=== PATIENT | male | born 1955 | race Caucasian/White ===

== ENCOUNTER 2016-11-27 18:48 | Emergency (ER) | payer MEDICARE, OTHER ==
[~2016-11-27] VITALS: Ht 172.7 cm; Wt 63.5 kg
[2016-11-27 18:51] VITALS: BP 140/49
== END 2016-11-27 19:30 | disposition home or self-care (01) ==
LOC: ER 18:49
DX: T16.2XXA Foreign body in left ear, initial encounter (principal); H60.8X2 Other otitis externa, left ear; X58.XXXA Exposure to other specified factors, initial encounter; Y92.89 Other specified places as the place of occurrence of the external cause; Y93.89 Activity, other specified; Y99.8 Other external cause status
CPT/HCPCS: 99283; A4606; Z7610

== ENCOUNTER 2017-03-21 13:09 | Inpatient (IN) | payer MEDICARE, OTHER ==
[~2017-03-21] VITALS: Ht 172.7 cm; Wt 64.9 kg
--- NOTE | 2017-03-21 13:15 | NUR ---
pt bib housemates to er bed 09. anxious, stating he had a lot of energy drink today. per report, pt also having nausea and vomiting last night. gowned and placed on monitor. awaiting md jessica.
[2017-03-21 13:36] LABS: BASOPHILS % (AUTO) 0.1 % (0.0-2.0); EOSINOPHILS # (AUTO) 0.1 /CMM (0.0-0.7); EOSINOPHILS % (AUTO) 0.5 % (0.0-6.0); HEMATOCRIT 36 % (39-51); HEMOGLOBIN 12.6 g/dL (13.5-17.5); LYMPHOCYTES # (AUTO) 0.8 /CMM (0.8-4.8); LYMPHOCYTES % (AUTO) 5.6 % (20.0-44.0); MEAN CORPUSCULAR HEMOGLOBIN 34 PG (26.0-33.0); MEAN CORPUSCULAR HGB CONC 35 g/dl (31.0-36.0); MEAN CORPUSCULAR VOLUME 98 fL (80-96); MONOCYTES # (AUTO) 1.1 /CMM (0.1-1.30); MONOCYTES % (AUTO) 7.9 % (2.0-12.0); NEUTROPHILS % (AUTO) 85.9 % (43.0-81.0); PLATELET COUNT (AUTO) 385 /CMM (150-450); RDW COEFFICIENT OF VARIATION 12.4 (11.5-15.0); RED BLOOD CELL COUNT(AUTO) 3.73 MIL/uL (4.5-6.0)
[2017-03-21 13:44] LABS: CALCIUM, SERUM 8.9 mg/dL (8.5-10.1); CARBON DIOXIDE 23 mmol/L (21-32); CHLORIDE 88 mmol/L (98-107); GLUCOSE 109 mg/dL (74-106); SODIUM SERUM 123 mmol/L (136-145); UREA NITROGEN, BLOOD 7 mg/dL (7-18)
[2017-03-21 13:49] LABS: ALANINE AMINOTRANSFERASE 30 U/L (12-78); ALBUMIN 4.2 g/dL (3.4-5.0); ALCOHOL, BLOOD < 3 mg/dL (0-0); ALKALINE PHOSPHATASE 76 U/L (46-116); ASPARTATE AMINOTRANSFERASE 41 U/L (15-37); BILIRUBIN,DIRECT 0.2 mg/dL (0.0-0.2); BILIRUBIN,TOTAL 1.3 mg/dL (0.2-1.0); TOTAL PROTEIN, SERUM 6.9 g/dL (6.4-8.2)
[2017-03-21 13:50] LABS: ACETAMINOPHEN < 10 ug/ml (10-30); SALICYLATE < 2.8 mg/dL (2.8-20.0)
[2017-03-21] MEDS ORDERED: LORAZEPAM 1 MG TABLET ONE ×2 (14:00→15:12)
[2017-03-21] MEDS ORDERED: LORAZEPAM 1 MG TABLET PO ONE ×2 (14:00→15:00)
[2017-03-21] MEDS ORDERED: OLANZAPINE 5 MG TABLET PO ONE (14:00)
[2017-03-21] MEDS ORDERED: OLANZAPINE 5 MG TABLET ONE (14:01)
--- NOTE | 2017-03-21 14:21 | NUR ---
URINE OBTAINED VIA STRAIGHT CATH AND SENT TO LAB PER DR. FRANKS.
--- NOTE | 2017-03-21 14:21 | NUR ---
CALLED [facility], LEFT VOICEMAIL.
[2017-03-21] MEDS ORDERED: LITH300T PO (14:24)
[2017-03-21] MEDS ORDERED: ZOLP10TA6 PO (14:24)
[2017-03-21] MEDS ORDERED: OXYB15TA PO (14:24)
[2017-03-21] MEDS ORDERED: AMIT50TA3 PO (14:24)
[2017-03-21] MEDS ORDERED: BUSP15TA3 PO (14:24)
[2017-03-21] MEDS ORDERED: SERT100T PO (14:24)
[2017-03-21] MEDS ORDERED: CLON1TAB4 PO (14:24)
[2017-03-21] MEDS ORDERED: QUET25TA PO (14:24)
[2017-03-21] MEDS ORDERED: LEVO100T9 PO (14:24)
[2017-03-21 14:43] LABS: APPEARANCE,URINE Clear (CLEAR); BILIRUBIN,URINE Negative (NEGATIVE); BLOOD, URINE Small Ery/uL (NEGATIVE); COLOR,URINE Light yellow (YELLOW); KETONES,URINE Negative (NEGATIVE); LEUKOCYTE ESTERASE ,URINE Negative (NEGATIVE); NITRITE, URINE Negative (NEGATIVE); PH,URINE 7.5 (5.0-8.0); PROTEIN,URINE Negative (NEGATIVE); UGLUCOSE Negative (NEGATIVE); UROBILINOGEN,URINE 0.2 EU/dL (0.2)
--- NOTE | 2017-03-21 14:46 | NUR ---
PATIENT WILL BE ADMITTED INTO [facility] 220-1.
[2017-03-21 14:48] LABS: BACTERIA,URINE None seen /HPF (None Seen); SQUAMOUS EPITHELIAL CELL,UR Few /HPF (None Seen); WBC,URINE 0-3 /HPF (0-3)
--- NOTE | 2017-03-21 16:59 | NUR ---
REPORT GIVEN TO ALEXANDRIA MONTANA FOR CONTINUITY OF CARE
--- NOTE | 2017-03-21 17:10 | NUR ---
PATIENT TAKEN TO GPS VIA STRETCHE WITH EMT.
[2017-03-21 17:15] VITALS: BP 140/88
--- NOTE | 2017-03-21 17:16 | NUR ---
ADMISSION NOTES PATIENT ADMITTED FROM ER , 61 Y/OLD MALE ON 5150 HOLD ON DX OF GD. ACCORDING ON HOLD PATIENT A/O X3, DISORGANIZED THOUGHTS, NOT BATHING, HALLUCINATING, AND CONFUSED , AND UNABLE TO TAKE CARE OF HIM SELF. V/S TAKEN BP140/88, P-84, R-20, O2 -99 ROOM AIR, T-98 . ON FACE TO FACE ASSESSMENT PATIENT ANXIOUS, UNKEMPT,, MOOD FLAT, DEPRESS. PATIENT STATE "I HAVE A LATS OF ENERGY AT THIS TIME, BECAUSE OF DRINK LATS OF COFFEE". SHOWER GIVE BY ELECTRONIC WARFARE TECHNICAL'S. SKIN ASSESSMENT DONE, BUT PATIENT REFUSED PICTURE TO BE TAKEN. PATIENT HAS NO RESPIRATORY DISTRESS. PATIENT DENIED SI/HI AT THIS TIME. PATIENT UNSTEADY GAIT, REFUSED SIGN PAPERWORK. DR MILLER, AND JENNIFER AWARE OF NEW PATIENT AND LABS, AND MEDICATION. CONTINUED MONITORING, ENDORSED ONCOMING NURSE FOR CONTINUATION OF CARE.
[2017-03-21] MEDS ORDERED: MAGNESIUM HYDROXIDE 30 ML UDC PO PRN (18:00)
[2017-03-21] MEDS ORDERED: MAG HYDROX/AL HYDROX/SIMETH 30 ML UDC PO PRN (18:00)
[2017-03-21] MEDS ORDERED: ZOLPIDEM TARTRATE 10 MG TABLET PO PRN (18:30)
[2017-03-21] MEDS ORDERED: [UNRECOGNIZED DRUG - OTHER] PO SCH (19:00)
[2017-03-21] MEDS ORDERED: OXYBUTYNIN CHLORIDE PO SCH (19:00)
--- NOTE | 2017-03-21 19:54 | NUR ---
RN GPS NOTES PER DAY SHIFT DR RODRIGUEZ MADE AWARE OF PT. ABNORMAL LABS , AND DR RODRIGUEZ GIVEN ORDERS FOR REPEAT AM LABS ORDERS CARRIED OUT.
[2017-03-21 20:06] VITALS: BP 133/58
[2017-03-21] MEDS: ZOLPIDEM TARTRATE 10 MG TABLET PO PRN (21:40)
[2017-03-21] MEDS: LORAZEPAM 0.5 MG TABLET PO PRN (22:48)
--- NOTE | 2017-03-21 22:52 | NUR ---
GPS/RN PATIENT ANXIOUS, AGITATED, REQUESTED ATIVAN 1 MG PO PRN, ADMINISTERED ATIVAN PO ORDERED, WILL CONTINUE TO MONITOR.
[2017-03-22] MEDS ORDERED: IV NS 0.9% 1,000 ML IV PRN
--- NOTE | 2017-03-22 00:16 | NUR ---
RN GPS NOTES DR. RODRIGUEZ CALLED BACK WITH NEW ORDES IV NS 0.9 % 1,000 ML X ONCE NEW ORDERS NOTED AND CARRIED OUT .
[2017-03-22] MEDS ORDERED: IV NS 0.9% 1,000 ML IV ONE (00:30)
--- NOTE | 2017-03-22 05:39 | NUR ---
RN GPS NOTES RECEEVIED PT IVF 0.9% 1,000ML , TOLERTED WELL NO ACUTE DISTRESS NOTED , PT. COMFORTABLY RESTING HIS BED .
[2017-03-22 05:51] VITALS: BP 130/70
--- NOTE | 2017-03-22 06:35 | NUR ---
RN GPS NOTES PATIENT RESTING HIS BED,EASILY GETS AGITED , NO ACUTE DISTRESS NOTED ,NO CHANGES IN STATUS. ALL NEEDS ATTENDED ANTICIPATED . WILL ENDORSE TO NEXT SHIFT FOR CONTINUITY CARE
[2017-03-22] MEDS: OXYBUTYNIN CHLORIDE ER 5 MG TAB PO SCH (08:11)
[2017-03-22] MEDS: LEVOTHYROXINE SODIUM 100 MCG TABLET PO SCH (08:11)
[2017-03-22] MEDS: LORAZEPAM 0.5 MG TABLET PO PRN (08:11)
[2017-03-22 08:34] VITALS: BP 118/77
[2017-03-22 09:47] LABS: BASOPHILS % (AUTO) 0.1 % (0.0-2.0); EOSINOPHILS # (AUTO) 0.1 /CMM (0.0-0.7); EOSINOPHILS % (AUTO) 0.8 % (0.0-6.0); HEMATOCRIT 37 % (39-51); HEMOGLOBIN 12.6 g/dL (13.5-17.5); LYMPHOCYTES # (AUTO) 1.1 /CMM (0.8-4.8); LYMPHOCYTES % (AUTO) 12.6 % (20.0-44.0); MEAN CORPUSCULAR HEMOGLOBIN 34 PG (26.0-33.0); MEAN CORPUSCULAR HGB CONC 34 g/dl (31.0-36.0); MEAN CORPUSCULAR VOLUME 99 fL (80-96); MONOCYTES % (AUTO) 11.8 % (2.0-12.0); NEUTROPHILS # (AUTO) 6.3 /CMM (1.8-8.9); NEUTROPHILS % (AUTO) 74.7 % (43.0-81.0); PLATELET COUNT (AUTO) 316 /CMM (150-450); RDW COEFFICIENT OF VARIATION 13.9 (11.5-15.0); RED BLOOD CELL COUNT(AUTO) 3.72 MIL/uL (4.5-6.0); WHITE BLOOD COUNT (AUTO) 8.4 K/uL (4.3-11.0)
[2017-03-22 09:49] LABS: CREATININE, URINE < 13.0 MG/DL (30.0-125.0); URINE SODIUM, RANDOM 14 mmol/l (40-220)
[2017-03-22 10:02] LABS: ALBUMIN 3.5 g/dL (3.4-5.0); BILIRUBIN,TOTAL 0.9 mg/dL (0.2-1.0); CALCIUM, SERUM 8.2 mg/dL (8.5-10.1); CREATININE 0.8 mg/dL (0.6-1.3); POTASSIUM 3.7 mmol/L (3.5-5.1); TOTAL PROTEIN, SERUM 6.5 g/dL (6.4-8.2)
[2017-03-22 10:10] LABS: THYROID STIMULATING HORMONE 2.144 uIU/mL (0.358-3.74)
[2017-03-22 10:28] LABS: OSMOLALITY,URINE 75 mOS/kg (340-1090)
--- NOTE | 2017-03-22 13:00 | NUR ---
GPS/RN PATENT AWARE OF NEED FOR STOOL SAMPLE FOR OCCULT BLOOD, WAS INSTRUCTED TO TO NOTIFY STAFF AFTER BOWEL MOVEMENT FOR COLLECTION.
[2017-03-22] MEDS: SERTRALINE HCL 50 MG TABLET PO SCH (13:09)
[2017-03-22] MEDS: DIVALPROEX SODIUM 250 MG TABLET.DR PO SCH ×2 (13:09→21:28)
[2017-03-22 13:29] LABS: IRON, SERUM 86 ug/dl (50-175); TOTAL IRON BINDING CAPACITY 359 ug/dl (250-450)
[2017-03-22] MEDS: clonazePAM 1 MG TABLET PO PRN (13:48)
--- NOTE | 2017-03-22 13:49 | NUR ---
GPS/RN PATIENT ANXIOUS, RESTLESS, REQUESTING ATIVAN , ADMINISTERED ATIVAN PO ORDERED, WILL CONTINUE TO MONITOR. Addendum: 03/22/17 at 1458 by ANGEL MODI RN ATIVAN GIVEN AT 0811
--- NOTE | 2017-03-22 13:50 | NUR ---
GPS/RN PATIENT ANXIOUS, RESTLESS, REQUESTING KLONOPIN , ADMINISTERED KLONOPIN PO ORDERED, WILL CONTINUE TO MONITOR.
[2017-03-22 16:12] VITALS: BP 115/61
--- NOTE | 2017-03-22 19:55 | NUR ---
GPS RN NOTE: PATIENT WAS FOCUSED ON DISCHARGE AND CLAIMING THAT THERE IS NOTHING WRONG WITH HIM, HE JUST TOOK A LOT OF ENERGY DRINK. PATIENT'S VISITORS NAMED YOVANI IS PRESENT AND ASKING IF HE CAN TALK TO THE DOCTOR. EXPLAINED TO THE PATIENT AND HIS VISITOR THAT WE ARE GOING TO ADDRESS THEIR CONCERN TO THE DOCTOR IN AM BECAUSE THE DOCTOR WILL DO THE EVALUATION FOR THE PATIENT FOR DISCHARGE. PATIENT VISITOR YOVANI IS ONE OF THE PERSONS TO BE NOTIFIED AND SIGNED BY THE PATIENT. YOVANI LEFT HIS NUMBER AND REQUESTING IF HE CAN TALK TO THE DOCTOR WHEN AVAILABLE. EXPLAINED THAT IT WILL BE FOLLOWED UP IN THE MORNING. PATIENT AND VISITORS APPRECIATED.
[2017-03-22 20:16] VITALS: BP 108/50
[2017-03-22] MEDS: QUETIAPINE FUMARATE 100 MG TABLET PO SCH (21:28)
--- NOTE | 2017-03-22 22:00 | NUR ---
GPS RN NOTE: PATIENT WAS REQUESTING IF HE CAN GET HIS AMBIEN AND KLONOPIN AT THE SAME TIME, EXPLAINED TO THE PATIENT THAT PER POLICY WE CAN NOT GIVE AMBIEN AND KLONOPIN OR 2 BENZO AT THE SAME TIME AND WE HAVE TO WAIT 1 HOUR INTERVAL. PATIENT VALIDATED HIS QUESTIONS TO THE CHARGE NURSE. AFTER EXPLANATION BY THE CHARGE NURSE, PATIENT APPRECIATED.
[2017-03-22] MEDS: ZOLPIDEM TARTRATE 10 MG TABLET PO PRN (22:35)
[2017-03-23] MEDS: clonazePAM 1 MG TABLET PO PRN ×3 (06:35→20:52)
--- NOTE | 2017-03-23 06:42 | NUR ---
GPS RN NOTE: PATIENT ASKED WHY THE DOCTOR DISCONTINUED THE LITHIUM AND HE IS BEEN TAKEN THAT LITHIUM FOR A VERY LONG TIME. EXPLAINED TO THE PATIENT THE PLAN AND HE IS GOING TO BE EVALUATED BY THE PSYCHIATRIST AGAIN AND WILL CONTINUE TO FOLLOW UP. PATIENT APPRECIATED.
[2017-03-23 08:16] VITALS: BP 110/69
[2017-03-23] MEDS: OXYBUTYNIN CHLORIDE ER 5 MG TAB PO SCH (08:36)
[2017-03-23] MEDS: SERTRALINE HCL 50 MG TABLET PO SCH (08:37)
[2017-03-23] MEDS: LEVOTHYROXINE SODIUM 100 MCG TABLET PO SCH (08:37)
[2017-03-23] MEDS: DIVALPROEX SODIUM 250 MG TABLET.DR PO SCH ×2 (08:37→20:53)
--- NOTE | 2017-03-23 10:43 | NUR ---
Initial Discharge Plan: Patient lives at home with two roommates [address] [place] [address]. ([phone]). psych social worker attempted to contact patient's cousin Néstor Reeves , however he was unavailable. psych social worker left a detailed message with her direct contact information. psych social worker attempted to contact patient's roommate ([phone]) however, it was a non-working number. psych social worker will attempt again later. psych social worker will help form a safe and proper discharge.
[2017-03-23 16:25] VITALS: BP 120/60
--- NOTE | 2017-03-23 16:27 | NUR ---
garment worker spoke to patient regarding a penitentiary facility placement. Patient refuses placement and wants to return home and stated, "I am very happy at home and do not want to go anywhere else." garment worker will follow-up.
--- NOTE | 2017-03-23 16:29 | NUR ---
workers' compensation claims supervisor spoke to patient's cousin Néstor Reeves who stated that he is concerned about the patient returning home and stated that he does not believe the roommates want him to return home as the feel it is unsafe. Patient's cousin stated that he would come visit the patient and try to convince him to go to a halfway before returning home. workers' compensation claims supervisor will follow-up.
--- NOTE | 2017-03-23 16:31 | NUR ---
gospel worker spoke to patient's roommate Lew Osorio ([phone]) who stated that patient cannot return to the apartment and needs to find an alternative placement. gospel worker informed roommate that patient is refusing placement at this time and states the he wants to return home. Patient's roommate stated that he was going to come talk to the patient and inform him that he cannot return and that it might be best if he goes to a penitentiary. gospel worker will follow-up.
[2017-03-23 20:12] VITALS: BP 101/56
[2017-03-23] MEDS: QUETIAPINE FUMARATE 100 MG TABLET PO SCH (22:40)
[2017-03-23] MEDS: ZOLPIDEM TARTRATE 10 MG TABLET PO PRN (22:41)
[2017-03-24] MEDS: clonazePAM 1 MG TABLET PO PRN ×3 (03:08→16:22)
[2017-03-24 08:00] VITALS: BP 100/62
[2017-03-24] MEDS: LEVOTHYROXINE SODIUM 100 MCG TABLET PO SCH (08:19)
[2017-03-24] MEDS: OXYBUTYNIN CHLORIDE ER 5 MG TAB PO SCH (08:33)
[2017-03-24] MEDS: DIVALPROEX SODIUM 250 MG TABLET.DR PO SCH ×2 (08:33→20:34)
[2017-03-24] MEDS: SERTRALINE HCL 50 MG TABLET PO SCH (08:36)
--- NOTE | 2017-03-24 15:05 | NUR ---
machine clothing worker faxed initial review packet to [facility] (phone: [phone]/ fax: [phone]) [address] [place] [address]. machine clothing worker spoke to November from admissions who stated that they cannot accept the patient due to the fact they could not find a diagnosis for skilled coverage.
--- NOTE | 2017-03-24 15:32 | NUR ---
damper worker faxed initial review packet to [facility] (phone: [phone]) [address] [place] [address]. damper worker will follow-up.
--- NOTE | 2017-03-24 15:33 | NUR ---
chamber worker faxed initial review packet to [facility] (phone: [phone]/fax: [phone]) [address] [place] [address]. chamber worker will follow-up.
[2017-03-24 16:03] VITALS: BP 100/54
--- NOTE | 2017-03-24 16:24 | NUR ---
SUPERVISOR PRESSING DEPARTMENT-NOTES PATIENT STATED I NEED MY KLONOPIN FOR MY ANXIETY. KLONOPIN 0.5MG P.O GIVEN PRN ORDER. WILL CONT. MONITORING FOR SAFETY.
--- NOTE | 2017-03-24 18:15 | NUR ---
SAP BPC ARCHITECT-NOTES NO STOOL COLLECTED THIS SHIFT. PATIENT AWARE OF THE ORDER. WILL ENDORSE TO THE CHIEF RADIOLOGIC TECHNOLOGIST FOR CONTINUITY OF CARE.
[2017-03-24] MEDS: QUETIAPINE FUMARATE 100 MG TABLET PO SCH (21:21)
[2017-03-25] MEDS: clonazePAM 1 MG TABLET PO PRN ×4 (00:22→23:20)
--- NOTE | 2017-03-25 00:22 | NUR ---
GPS/RN NOTE: PATIENT FEELING ANXIOUS, KLONOPIN 0.5 MG TAB PO GIVEN.
[2017-03-25 02:19] VITALS: BP 136/68
[2017-03-25] MEDS: ACETAMINOPHEN 325 MG TABLET PO PRN (06:13)
--- NOTE | 2017-03-25 06:14 | NUR ---
GPS/RN NOTE: C/O HEADACHE, TYLENOL 650 MG TAB PO GIVEN.
[2017-03-25] MEDS: LEVOTHYROXINE SODIUM 100 MCG TABLET PO SCH (07:49)
[2017-03-25 08:00] VITALS: BP 126/64
[2017-03-25] MEDS: OXYBUTYNIN CHLORIDE ER 5 MG TAB PO SCH (08:43)
[2017-03-25] MEDS: SERTRALINE HCL 50 MG TABLET PO SCH (08:43)
[2017-03-25] MEDS: DIVALPROEX SODIUM 250 MG TABLET.DR PO SCH ×2 (08:43→21:11)
--- NOTE | 2017-03-25 08:50 | NUR ---
ROUGHER HELPER-NOTES PATIENT STATED I NEED MY KLONOPIN FOR MY ANXIETY. KLONOPIN 0.5MG P.O GIVEN PRN ORDER. WILL CONT. MONITORING FOR SAFETY.
--- NOTE | 2017-03-25 13:21 | NUR ---
Per Mc from the facility, patient has been accepted to [facility] (phone: [phone]) [address] [place] [address].
--- NOTE | 2017-03-25 13:22 | NUR ---
home worker spoke to patient who stated that he originally had agreed to stay until his cousin Silvestre would return from vacation. Patient however, stated "I woke up today and said I can't do this." Patient stated that he wanted his wallet and wanted to go to a hotel. home worker notified the patient that he got accepted to [facility] and requested that he take some time to think about it because he does not have his wallet or money to go to a hotel. Patient was unhappy but agreed to take some time to think about it. home worker will follow-up.
--- NOTE | 2017-03-25 13:28 | NUR ---
garbage pick up worker attempted to contact patient's cousin Néstor Reeves . However, he was unavailable. garbage pick up worker left him a detailed message and contact information.
--- NOTE | 2017-03-25 13:30 | NUR ---
rack production worker spoke to patient's daughter Trixie Milian ([phone]) and notified her the patient is unhappy and wants to be discharged to a hotel room. Patient's daughter stated that she cannot pick him up and that he cannot stay with her. Patient's daughter stated that she would talk to him and try to convince him to [facility]. rack production worker called patient's daughter from the unit and had her speak to the patient. rack production worker will follow-up.
--- NOTE | 2017-03-25 13:38 | NUR ---
flume worker spoke to patient's roommate Lew Osorio ([phone]) who stated that he would bring patient's wallet and wanted to speak to the patient regarding placement. flume worker transferred his call to the nursing station.
--- NOTE | 2017-03-25 13:39 | NUR ---
sand car worker spoke to patient who is now agreeing to go to [facility] and stated that his roommate stated that he would bring his wallet. Patient appears to be more agreeable and calm.
[2017-03-25 16:01] VITALS: BP 113/62
--- NOTE | 2017-03-25 16:49 | NUR ---
TOOLING SUPERVISOR-NOTES PATIENT STATED MY KLONOPIN IS DUE CAN I HAVE FOR MY ANXIETY. KLONOPIN 0.25MG P.O GIVEN PRN ORDER. WILL CONT. MONITORING FOR SAFETY.
[2017-03-25 20:00] VITALS: BP 113/72
[2017-03-25] MEDS: ZOLPIDEM TARTRATE 10 MG TABLET PO PRN (21:57)
[2017-03-25] MEDS ORDERED: QUETIAPINE FUMARATE 100 MG TABLET PO SCH (22:00)
--- NOTE | 2017-03-25 23:20 | NUR ---
GPS RN NOTES PATIENT C/0 ANXIETY. KLONOPIN 0.25MG P.O GIVEN PRN ORDER. WILL CONT. MONITORING FOR SAFETY.
--- NOTE | 2017-03-26 06:36 | NUR ---
RN GPS NOTES PATIENT RESTING HIS BED , NO ACUTE DISTRESS NOTED ,NO CHANGES IN STATUS. ALL NEEDS ATTENDED ANTICIPATED . WILL ENDORSE TO NEXT SHIFT FOR CONTINUITY CARE
[2017-03-26] MEDS: LEVOTHYROXINE SODIUM 100 MCG TABLET PO SCH (07:43)
[2017-03-26 08:00] VITALS: BP 112/72
[2017-03-26] MEDS: DIVALPROEX SODIUM 250 MG TABLET.DR PO SCH ×2 (09:08→17:12)
[2017-03-26] MEDS: OXYBUTYNIN CHLORIDE ER 5 MG TAB PO SCH (09:09)
[2017-03-26] MEDS: SERTRALINE HCL 50 MG TABLET PO SCH (09:09)
[2017-03-26] MEDS: clonazePAM 1 MG TABLET PO PRN (11:56)
--- NOTE | 2017-03-26 11:57 | NUR ---
CORONER TECHNICIAN-NOTES PATIENT STATED I CAN I HAVE MY KLONOPIN NOW. KLONOPIN 0.25MG P.O GIVEN PRN ORDER. WILL CONT. MONITORING FOR SAFETY.
[2017-03-26 16:00] VITALS: BP 107/60
--- NOTE | 2017-03-26 19:51 | NUR ---
GPS/RN NOTE: PATIENT RESTING QUIETLY, NO APPARENT DISTRESS NOTED. WILL CONTINUE TO MONITOR FOR SAFETY.
[2017-03-26 20:00] VITALS: BP 125/69
[2017-03-26] MEDS: ACETAMINOPHEN 325 MG TABLET PO PRN (20:11)
--- NOTE | 2017-03-26 20:14 | NUR ---
GPS/RN NOTE: C/O HEADACHE 3/10 ON PAIN SCALE, TYLENOL 650 MG TAB PO GIVEN.
[2017-03-26] MEDS: QUETIAPINE FUMARATE 100 MG TABLET PO SCH (21:13)
[2017-03-27 08:00] VITALS: BP 99/61
[2017-03-27] MEDS: DIVALPROEX SODIUM 250 MG TABLET.DR PO SCH ×3 (09:10→17:05)
[2017-03-27] MEDS: LEVOTHYROXINE SODIUM 100 MCG TABLET PO SCH (09:10)
[2017-03-27] MEDS: SERTRALINE HCL 50 MG TABLET PO SCH (09:10)
[2017-03-27] MEDS: OXYBUTYNIN CHLORIDE ER 5 MG TAB PO SCH (09:10)
[2017-03-27] MEDS: hydrOXYzine PAMOATE 25 MG CAPSULE PO PRN ×2 (12:33→20:28)
--- NOTE | 2017-03-27 12:42 | NUR ---
ADMINISTERED VISTARIL 25 MG PO PRN FOR ANXIETY, AND MILK OF MAGNESIA FOR CONSTIPATION, ENCOURAGED TO INCREASE FLUID INTAKE.
[2017-03-27 16:00] VITALS: BP 127/59
[2017-03-27] MEDS: ACETAMINOPHEN 325 MG TABLET PO PRN ×2 (16:49→22:43)
--- NOTE | 2017-03-27 16:50 | NUR ---
ADMINISTERED TYLENOL 650 MG PO PRN FOR HEADACHE 5/10, CONTINUED MONITORING.
--- NOTE | 2017-03-27 20:28 | NUR ---
GPS/RN NOTE: PATIENT C/O ANXIETY, VISTARIL 25 MG TAB 1 PO GIVEN.
[2017-03-27 20:32] VITALS: BP 134/76
--- NOTE | 2017-03-27 20:35 | NUR ---
GPS/RN NOTE: PATIENT WAS GIVEN MILK PER HIS REQUEST, AWAKE, ALERT, MED COMPLIANT. NO ACUTE DISTRESS NOTED. WILL CONTINUE TO MONITOR Q 15 MINS. TO MAINTAIN SAFETY
[2017-03-27] MEDS: QUETIAPINE FUMARATE 100 MG TABLET PO SCH (21:00)
--- NOTE | 2017-03-27 21:20 | NUR ---
GPS/RN NOTE: REFUSED SKIN ASSESSMENT
--- NOTE | 2017-03-27 22:44 | NUR ---
GPS/RN NOTE: C/O HEADACHE, 3/10 PAIN SCALE, TYLENOL 650 MG TAB PO GIVEN.
[2017-03-28] MEDS: hydrOXYzine PAMOATE 25 MG CAPSULE PO PRN ×2 (04:37→10:01)
--- NOTE | 2017-03-28 04:38 | NUR ---
GPS/RN NOTE: REQUESTING FOR VISTARIL 25 MG, FEELING ANXIOUS, 1 TAB PO GIVEN.
[2017-03-28] MEDS: OXYBUTYNIN CHLORIDE ER 5 MG TAB PO SCH (07:50)
[2017-03-28] MEDS: SERTRALINE HCL 50 MG TABLET PO SCH (07:50)
[2017-03-28] MEDS: LEVOTHYROXINE SODIUM 100 MCG TABLET PO SCH (07:50)
[2017-03-28] MEDS: DIVALPROEX SODIUM 250 MG TABLET.DR PO SCH ×2 (07:51→12:13)
[2017-03-28 08:00] VITALS: BP 97/55
--- NOTE | 2017-03-28 10:01 | NUR ---
GPS RN NOTES/ ADMINISTERED VISTARIL 25 MG PO PRN FOR ANXIETY PER PATIENT REQUEST, CONTINUED MONITORING.
[2017-03-28] MEDS: ACETAMINOPHEN 325 MG TABLET PO PRN (12:00)
--- NOTE | 2017-03-28 12:00 | NUR ---
ADMINISTERED TYLENOL 650 MG PO PRN FOR GENERALIZED PAIN 5/10, PER PATIENT REQUEST, CONTINUED MONITORING.
--- NOTE | 2017-03-28 13:46 | NUR ---
Discharge Note: Patient will be discharged to [facility] (phone: [phone]) [place] [address]. Via [facility] response. Patient's cousin Néstor Reeves and his daughter Trixie Milian ([phone]) have been informed. Patient and patient's family are agreeable with the discharge plan. Patient's mood and affect are appropriate. Patient denies suicidal and homicidal ideations. Patient will follow-up with Dr. Bermudez on Tuesday at 9:30am at the facility and will further discuss his substance use. Facilitated info to IDT team who are in agreement with discharge arrangement. The multidisciplinary exitcare form was done, printed, signed, and given to the patient.
[2017-03-28 16:07] VITALS: BP 154/87
--- NOTE | 2017-03-28 16:10 | NUR ---
DISCHARGE NOTES PATIENT [facility]CHAR[facility] AT THIS TIME FROM [facility] PSYCHI[facility], AND VENEER PRESS OPERATOR WILL FOLLOW PATIENT. PATIENT A/O X3, MED COMPLIANT, V/S STABLE, MEDICALLY STABLE. NO C/O PAIN. PATIENT DENIED SI/HI/AVH AT THIS TIME. MED RECONCILIATION, AND DISCHARGE ORDER REVIEWED AND EXPLAINED TO. PATIENT SIGN PAPERWORK, BUT REFUSED PICTURE TO BE TAKEN. REPORT GIVEN SNF RN NAME ZOFIA . RN VERBALIZED UNDERSTANDING. FAMILY PRESENT DURING THE DISCHARGE. BELONGING RETURNED BACK TO THE PATIENT. PATIENT ELECTRIC BLANKET PACKER BY AMBULANCE.
[2017-03-28 16:31] LABS: CHOLESTEROL 159 mg/dL (<200); HDL CHOLESTEROL 70 mg/dL (40-60); LDL 70 mg/dL (0-99); TRIGLYCERIDES 68 mg/dL (30-150)
== END 2017-03-28 16:10 | DRG 885 ==
LOC: ER 13:10 → GPS 17:13
PROVIDERS: ADMIT Psychiatry & Neurology Psychiatry; ATTEND Psychiatry & Neurology Psychiatry
DX: F25.0 Schizoaffective disorder, bipolar type (principal); G93.41 Metabolic encephalopathy; E87.1 Hypo-osmolality and hyponatremia; Z91.19 Patient's noncompliance with other medical treatment and regimen; W19.XXXA Unspecified fall, initial encounter; D64.9 Anemia, unspecified; E03.9 Hypothyroidism, unspecified; F13.10 Sedative, hypnotic or anxiolytic abuse, uncomplicated; F41.9 Anxiety disorder, unspecified; R29.6 Repeated falls; F90.9 Attention-deficit hyperactivity disorder, unspecified type; Y92.009 Unspecified place in unspecified non-institutional (private) residence as the place of occurrence of the external cause; Z81.8 Family history of other mental and behavioral disorders; Z79.899 Other long term (current) drug therapy; D72.829 Elevated white blood cell count, unspecified
CPT/HCPCS: 36415; 70450-TC; 80048-TC; 80053-TC; 80061-TC; 80076-TC; 80164-TC; 80305; 81000-TC; 82570-TC; 82962-TC; 83540-TC; 83735-TC; 83935-TC; 84300-TC; 84443-TC; 85025-TC; 87081-TC; A4606; G0480; J7030; Q0177; Z7610

== ENCOUNTER 2018-02-26 16:46 | Inpatient (IN) | payer MEDICARE, OTHER ==
[~2018-02-26] VITALS: Ht 182.9 cm; Wt 59.4 kg
[~2018-02-26 16:46] MED LIST: LEVO100T9 PO; OXYB15TA PO; ZOLP10TA6 PO
--- NOTE | 2018-02-26 17:12 | NUR ---
BB COUSIN FOR DIARRHEA, FEELING WEAK, CHILLS, COLD, SHAKING. PER PATIENT HE NEEDS ZOLOFT AND HAS BEEN OUT FOR WEEKS. PT IS AFEBRILE. VSS
[2018-02-26 17:18] LABS: BASOPHILS % (AUTO) 0.3 % (0.0-2.0); EOSINOPHILS % (AUTO) 0.5 % (0.0-6.0); HEMATOCRIT 38 % (39-51); HEMOGLOBIN 13.5 g/dL (13.5-17.5); LYMPHOCYTES # (AUTO) 1.4 /CMM (0.8-4.8); LYMPHOCYTES % (AUTO) 19.8 % (20.0-44.0); MEAN CORPUSCULAR HEMOGLOBIN 33 PG (26.0-33.0); MEAN CORPUSCULAR HGB CONC 35 g/dl (31.0-36.0); MEAN CORPUSCULAR VOLUME 95 fL (80-96); MONOCYTES # (AUTO) 0.6 /CMM (0.1-1.30); MONOCYTES % (AUTO) 8.7 % (2.0-12.0); NEUTROPHILS # (AUTO) 5.3 /CMM (1.8-8.9); NEUTROPHILS % (AUTO) 70.7 % (43.0-81.0); PLATELET COUNT (AUTO) 206 /CMM (150-450); RDW COEFFICIENT OF VARIATION 12.9 (11.5-15.0); RED BLOOD CELL COUNT(AUTO) 4.04 MIL/uL (4.5-6.0); WHITE BLOOD COUNT (AUTO) 7.3 K/uL (4.3-11.0)
[2018-02-26 17:28] LABS: CALCIUM, SERUM 8.7 mg/dL (8.5-10.1); CREATININE 1.1 mg/dL (0.6-1.3); POTASSIUM 3.7 mmol/L (3.5-5.1)
[2018-02-26] MEDS ORDERED: IV NS 0.9% 1,000 ML BAG IV ONE (17:30)
--- NOTE | 2018-02-26 19:01 | NUR ---
REPORT GIVEN TO NAN MITCHELL
[2018-02-26] MEDS ORDERED: SERT100T PO (19:08)
[2018-02-26] MEDS ORDERED: QUET300T2 PO (19:08)
[2018-02-26] MEDS ORDERED: DIVA250T PO (19:08)
[2018-02-26] MEDS ORDERED: TRAZ-214 PO (19:08)
[2018-02-26] MEDS ORDERED: HYDROCODONE/APAP 5/325MG 1 EACH TABLET PO PRN (20:00)
[2018-02-26] MEDS ORDERED: MAG HYDROX/AL HYDROX/SIMETH 30 ML UDC PO PRN (20:00)
[2018-02-26] MEDS ORDERED: ONDANSETRON HCL/PF 4 MG/2 ML VIAL IVP PRN (20:00)
[2018-02-26] MEDS ORDERED: ONDANSETRON HCL/PF 4 MG/2 ML VIAL IV ONE (20:00)
[2018-02-26] MEDS ORDERED: Z GUARD REMEDY 2 OZ OINT TP PRN (20:00)
[2018-02-26] MEDS ORDERED: ACETAMINOPHEN 325 MG TABLET PO PRN (20:00)
[2018-02-26] MEDS ORDERED: MAGNESIUM HYDROXIDE 30 ML UDC PO PRN (20:00)
[2018-02-26] MEDS: QUETIAPINE FUMARATE 100 MG TABLET PO SCH (20:16)
[2018-02-26] MEDS ORDERED: QUETIAPINE FUMARATE 25 MG TABLET ONE (20:17)
--- NOTE | 2018-02-26 20:22 | NUR ---
PATIENT ASSIGNED M/S 200
[2018-02-26] MEDS ORDERED: QUETIAPINE FUMARATE 100 MG TABLET PO ONE (20:30)
--- NOTE | 2018-02-26 20:34 | NUR ---
REPORT GIVEN TO SAVANNAH
[2018-02-26 20:55] VITALS: BP 111/51
--- NOTE | 2018-02-26 21:15 | NUR ---
MS RN NOTE RECEIVED PATIENT FROM ER FOR ADMISSION VIA WHEELCHAIR, PATIENT IS AMBULATORY, ALERT AND ORIENTEDX4, DENIES RESPIRATORY DISTRESS AND PAIN. IV ON RIGHT FA IS PATENT AND INTACT. SKIN IS INTACT, NO EDEMA NOTED. VS WNL. SRX2, BED IN LOW POSITION, CALL LIGHT WITHIN REACH, WILL CONTINUE TO MONITOR PATIENT.
[2018-02-26] MEDS: IV NS 0.9% 1,000 ML IV PRN (21:48)
--- NOTE | 2018-02-27 06:29 | NUR ---
MS RN NOTE PATIENT IS SLEEPING IN BED COMFORTABLY, NO ACUTE EVENT NOTED SINCE ADMISSION. IV ON RIGHT FA IS PATENT AND INTACT, PATIENT REFUSED TO GET FLUID. SRX2, BED IN LOW POSITION, CALL LIGHT WITHIN REACH, WILL ENDORSE TO DAY SHIFT NURSE FOR GAMALIEL.
[2018-02-27 08:01] LABS: BASOPHILS % (AUTO) 0.7 % (0.0-2.0); EOSINOPHILS % (AUTO) 1.4 % (0.0-6.0); HEMATOCRIT 35 % (39-51); HEMOGLOBIN 12.2 g/dL (13.5-17.5); LYMPHOCYTES # (AUTO) 1.6 /CMM (0.8-4.8); LYMPHOCYTES % (AUTO) 33.8 % (20.0-44.0); MEAN CORPUSCULAR HEMOGLOBIN 34 PG (26.0-33.0); MEAN CORPUSCULAR HGB CONC 34 g/dl (31.0-36.0); MEAN CORPUSCULAR VOLUME 98 fL (80-96); MONOCYTES # (AUTO) 0.4 /CMM (0.1-1.30); MONOCYTES % (AUTO) 8.7 % (2.0-12.0); NEUTROPHILS # (AUTO) 2.7 /CMM (1.8-8.9); NEUTROPHILS % (AUTO) 55.4 % (43.0-81.0); PLATELET COUNT (AUTO) 187 /CMM (150-450); RDW COEFFICIENT OF VARIATION 13.6 (11.5-15.0); RED BLOOD CELL COUNT(AUTO) 3.63 MIL/uL (4.5-6.0); WHITE BLOOD COUNT (AUTO) 4.9 K/uL (4.3-11.0)
[2018-02-27 08:11] LABS: CREATININE 0.8 mg/dL (0.6-1.3); PHOSPHORUS 3.8 mg/dL (2.5-4.9); POTASSIUM 3.6 mmol/L (3.5-5.1)
[2018-02-27] MEDS: DIVALPROEX SODIUM 250 MG TABLET.DR PO SCH ×3 (08:18→17:16)
[2018-02-27] MEDS: SERTRALINE HCL 50 MG TABLET PO SCH (08:18)
[2018-02-27 08:20] LABS: THYROID STIMULATING HORMONE 5.056 uIU/mL (0.358-3.74)
--- NOTE | 2018-02-27 08:20 | NUR ---
MS RN NOTES PATIENT IN BED, A/O X3. BREAKFAST IS SERVED, NO APPETITE TO EAT AT THIS TIME. BREATHING ON ROOM AIR WITH NO SOB. IVC IN RFA PATENT AND INTACT, FLUSHES WELL. IVF NS NOT INFUSING, PATIENT REFUSED DESPITE OF EDUCATION AND TEACHING. DENIES DIARRHEA OR BOWEL MOVEMENT, INSTRUCTED PATIENT TO REPORT AND CALL THE NURSE IF EPISODE OF DIARRHEA, VERBALIZED UNDERSTANDING. CALL LIGHT WITHIN REACH. WILL CONT TO MONITOR.
[2018-02-27 09:04] VITALS: BP 100/55
[2018-02-27 16:51] VITALS: BP 98/53
--- NOTE | 2018-02-27 18:24 | NUR ---
MS RN CLOSING NOTES PATIENT IS A/O X3 FORGETFUL. AMBULATES TO THE BATHROOM INDEPENDENTLY, DENIES PAIN. EPISODE OF LOOSE BOWEL MOVEMENTX1. STOOL SPECIMEN SEND TO LAB FOR C DIFF TEST PER HOSP PROTOCOL. IVF NS INFUSING AT 75ML/HR, INTERMITTENTLY STOP INFUSING DUE TO PATIENT REFUSAL DESPITE OF EDUCATION AND TEACHING. CONT HOSPITALIZATION PER MD. WILL ENDORSE TO ONCOMING RN.
--- NOTE | 2018-02-27 19:30 | NUR ---
MS2/RN RECEIVE PATIENT AWAKE, ALERT, ORIENTED, COMFORTABLE, NO C/O PAIN, NO DISTRESS NOTED, CALL LIGHT IN REACH. WILL MONITOR.
[2018-02-27 20:00] VITALS: BP 120/63
[2018-02-27] MEDS: QUETIAPINE FUMARATE 100 MG TABLET PO SCH (20:54)
[2018-02-27] MEDS: ZOLPIDEM TARTRATE 5 MG TABLET PO PRN (20:57)
--- NOTE | 2018-02-27 21:00 | NUR ---
MS2/RN PATIENT REQUESTED TO STOP IVF, PER PATIENT HE CANNOT SLEEP WITH THE IVF RUNNING. EXPLAINED IMPORTANCE OF IVF, VERBALIZED UNDERSTANDING BUT INSISTED TO HAVE IVF STOPPED.
[2018-02-28 08:00] VITALS: BP 101/55
[2018-02-28 08:00] LABS: BASOPHILS % (AUTO) 0.3 % (0.0-2.0); EOSINOPHILS % (AUTO) 2.4 % (0.0-6.0); HEMATOCRIT 35 % (39-51); HEMOGLOBIN 11.8 g/dL (13.5-17.5); LYMPHOCYTES # (AUTO) 2.2 /CMM (0.8-4.8); LYMPHOCYTES % (AUTO) 38.5 % (20.0-44.0); MEAN CORPUSCULAR HEMOGLOBIN 33 PG (26.0-33.0); MEAN CORPUSCULAR HGB CONC 34 g/dl (31.0-36.0); MEAN CORPUSCULAR VOLUME 99 fL (80-96); MONOCYTES # (AUTO) 0.5 /CMM (0.1-1.30); MONOCYTES % (AUTO) 9.5 % (2.0-12.0); NEUTROPHILS # (AUTO) 2.8 /CMM (1.8-8.9); NEUTROPHILS % (AUTO) 49.3 % (43.0-81.0); PLATELET COUNT (AUTO) 180 /CMM (150-450); RDW COEFFICIENT OF VARIATION 14.1 (11.5-15.0); RED BLOOD CELL COUNT(AUTO) 3.55 MIL/uL (4.5-6.0); WHITE BLOOD COUNT (AUTO) 5.7 K/uL (4.3-11.0)
[2018-02-28 08:07] LABS: CALCIUM, SERUM 7.7 mg/dL (8.5-10.1); CREATININE 0.9 mg/dL (0.6-1.3); MAGNESIUM 1.9 mg/dL (1.8-2.4); PHOSPHORUS 3.6 mg/dL (2.5-4.9); POTASSIUM 3.8 mmol/L (3.5-5.1)
[2018-02-28] MEDS: SERTRALINE HCL 50 MG TABLET PO SCH (08:10)
[2018-02-28] MEDS: DIVALPROEX SODIUM 250 MG TABLET.DR PO SCH ×3 (08:10→17:10)
--- NOTE | 2018-02-28 08:10 | NUR ---
MS RN NOTES PATIENT IN BED, A/O X3. BREAKFAST IS SERVED, NO APPETITE TO EAT AT THIS TIME.BREATHING ON ROOM AIR WITH NO SOB. IVC IN RFA PATENT AND INTACT, FLUSHES WELL. IVF NS NOT INFUSING, PATIENT REFUSED DESPITE OF EDUCATION AND TEACHING. DENIES DIARRHEA OR BOWEL MOVEMENT, INSTRUCTED PATIENT TO REPORT AND CALL THE NURSE IF EPISODE OF DIARRHEA, VERBALIZED UNDERSTANDING. CALL LIGHT WITHIN REACH. WILL CONT TO MONITOR. Addendum: 02/28/18 at 0935 by SAHIL LONGORIA RN ERROR NOTES ABOVE, PLEASE DISREGARD.
--- NOTE | 2018-02-28 08:15 | NUR ---
MS RN NOTES PATIENT IN BED, A/O X3. BREAKFAST IS SERVED WITH GOOD APPETITE TODAY. BREATHING ON ROOM AIR WITH NO SOB. IVC IN RFA PATENT AND INTACT, FLUSHES WELL. IVF NS NOT INFUSING, PATIENT REFUSED DESPITE OF EDUCATION AND TEACHING. DENIES DIARRHEA OR BOWEL MOVEMENT, INSTRUCTED PATIENT TO REPORT AND CALL THE NURSE IF EPISODE OF DIARRHEA, PATIENT, VERBALIZED UNDERSTANDING. CALL LIGHT WITHIN REACH. WILL CONT TO MONITOR.
--- NOTE | 2018-02-28 12:23 | NUR ---
Social service consult requested by Dr. Monsalve for psychiatric evaluation. Pt. is a 62 year old male who was admitted to [facility] for weakness. SW met with pt. bedside. Pt. is alert and oriented x 4. Pt. is friendly and cordial with SW during the assessment. Pt. states he lives in a board and care facility located at [address] [place] [address] in [facility]. [place] Pt. receives approximately $1300 per month in SSI. Pt. states he prefers to not go back to the board and care and requested for materials planner to speak with his cousin Néstor to discuss the discharge plan. Pt. states his cousin is his DPOA as well and handles his finances. Pt. states he was taking Seroquel, however the Board and [facility] stopped refilling his prescription and he started to feel sick and decided to come to the ED. Pt. has a psychiatric evaluation pending at this time. GABRIELA informed bilingual patient support caseworker Corazon regarding calling pt's cousin per his request. No other social service needs are requested at this time. SW is available, if needed.
[2018-02-28 16:00] VITALS: BP 109/60
--- NOTE | 2018-02-28 18:58 | NUR ---
MS RN CLOSING NOTES PATIENT IS A/O X3, COOPERATIVE. AMBULATES TO THE BATHROOM INDEPENDENTLY, DENIES PAIN. NO EPISODE OF DIARRHEA DURING THE SHIFT. STOOL C DIFF RESULTED NEGATIVE FOR C DIFF. TOXIN. MAINTAINED ON GENTLE HYDRATION IVF NS AT 75ML/HR. FOR PSYCH CONSULT, GPS UNIT INFORMED. WILL ENDORSE TO ONCOMING RN.
[2018-02-28 20:00] VITALS: BP 114/71
--- NOTE | 2018-02-28 20:22 | NUR ---
MS2/RN PATIENT IS AWAKE, ALERT, ORIENTED, COMFORTABLE, NO C/O PAIN, NO DISTRESS NOTED, CALL LIGHT IN REACH. WILL MONITOR.
[2018-02-28] MEDS: QUETIAPINE FUMARATE 100 MG TABLET PO SCH (21:03)
[2018-02-28] MEDS: ZOLPIDEM TARTRATE 5 MG TABLET PO PRN (21:03)
--- NOTE | 2018-02-28 22:00 | NUR ---
MS2/RN PATIENT IS SLEEPING AT THIS TIME, EASILY AROUSABLE, APPEAR COMFORTABLE, NO SIGNS OF DISTRESS NOTED, CALL LIGHT IN REACH. WILL CONTINUE TO MONITOR.
--- NOTE | 2018-03-01 06:12 | NUR ---
MS2/RN PATIENT STILL SLEEPING AT THIS TIME, AROUSABLE, APPEAR COMFORTABLE, NO DISTRESS NOTED, CALL LIGHT IN REACH. ALL NEEDS ATTENDED AT THIS TIME. WILL CONTINUE TO MONITOR.
[2018-03-01 07:54] LABS: BASOPHILS % (AUTO) 0.6 % (0.0-2.0); EOSINOPHILS % (AUTO) 2.1 % (0.0-6.0); HEMATOCRIT 36 % (39-51); LYMPHOCYTES # (AUTO) 1.7 /CMM (0.8-4.8); LYMPHOCYTES % (AUTO) 36.4 % (20.0-44.0); MEAN CORPUSCULAR HEMOGLOBIN 34 PG (26.0-33.0); MEAN CORPUSCULAR HGB CONC 34 g/dl (31.0-36.0); MEAN CORPUSCULAR VOLUME 99 fL (80-96); MONOCYTES # (AUTO) 0.4 /CMM (0.1-1.30); MONOCYTES % (AUTO) 9.7 % (2.0-12.0); NEUTROPHILS # (AUTO) 2.4 /CMM (1.8-8.9); NEUTROPHILS % (AUTO) 51.2 % (43.0-81.0); PLATELET COUNT (AUTO) 188 /CMM (150-450); RDW COEFFICIENT OF VARIATION 14.3 (11.5-15.0); RED BLOOD CELL COUNT(AUTO) 3.58 MIL/uL (4.5-6.0); WHITE BLOOD COUNT (AUTO) 4.6 K/uL (4.3-11.0)
[2018-03-01 08:00] VITALS: BP 103/61
--- NOTE | 2018-03-01 08:00 | NUR ---
MS RN AM NOTES PATIENT IN BED, A/O X3. BREAKFAST IS SERVED, NO APPETITE TO EAT AT THIS TIME. BREATHING ON ROOM AIR WITH NO SOB. IVC IN RFA PATENT AND INTACT, FLUSHES WELL. IVF NS INFUSING WELL AT 75 ML/HR, AFTER EDUCATION AND TEACHING. DENIES DIARRHEA OR BOWEL MOVEMENT, INSTRUCTED PATIENT TO REPORT AND CALL THE NURSE IF EPISODE OF DIARRHEA, VERBALIZED UNDERSTANDING. CALL LIGHT WITHIN REACH. WILL CONT TO MONITOR.
[2018-03-01 08:11] LABS: CALCIUM, SERUM 8.1 mg/dL (8.5-10.1); CREATININE 0.8 mg/dL (0.6-1.3); PHOSPHORUS 3.5 mg/dL (2.5-4.9); POTASSIUM 4.1 mmol/L (3.5-5.1)
[2018-03-01 08:25] LABS: THYROID STIMULATING HORMONE 4.347 uIU/mL (0.358-3.74)
[2018-03-01] MEDS: DIVALPROEX SODIUM 250 MG TABLET.DR PO SCH ×3 (08:32→18:35)
[2018-03-01] MEDS: SERTRALINE HCL 50 MG TABLET PO SCH (08:33)
[2018-03-01] MEDS: IV NS 0.9% 1,000 ML IV PRN (09:44)
--- NOTE | 2018-03-01 13:00 | NUR ---
PT WAS SEEN BY DR MARR WITH ORDERS TO DC PT TO GPS FOR VOLUNTARY ADMISSION.CALLED GPS AND SPOKE TO TOSIN AND MADE AWARE.
[2018-03-01 16:00] VITALS: BP 143/72
--- NOTE | 2018-03-01 20:07 | NUR ---
DISCHARGED PT TO [facility] PER DR MILLER VOLUNTARY ADMISSION.WITH STABLE V/S.CALLED [facility] RN AND MADE AWARE.ENDORSED TO TAPPER HELPER RNDIANA.
[2018-03-02] MEDS ORDERED: FLUO10TA PO (07:49)
== END 2018-03-01 20:14 | DRG 897 ==
LOC: ER 16:53 → MEDSG2 20:32
DX: F13.239 Sedative, hypnotic or anxiolytic dependence with withdrawal, unspecified (principal); F31.64 Bipolar disorder, current episode mixed, severe, with psychotic features; Z91.14 Patient's other noncompliance with medication regimen; E03.9 Hypothyroidism, unspecified; F41.9 Anxiety disorder, unspecified; Z79.899 Other long term (current) drug therapy; T42.4X5A Adverse effect of benzodiazepines, initial encounter; Y92.099 Unspecified place in other non-institutional residence as the place of occurrence of the external cause; A08.4 Viral intestinal infection, unspecified; F29 Unspecified psychosis not due to a substance or known physiological condition; D63.8 Anemia in other chronic diseases classified elsewhere
CPT/HCPCS: 36415; 80048-TC; 80061-TC; 83735-TC; 84100-TC; 84443-TC; 85025-TC; 87081-TC; A4606; J2405; J7030; Z7610

== ENCOUNTER 2018-03-01 20:39 | Inpatient (IN) | payer MEDICARE, OTHER ==
[2018-03-01 20:00] VITALS: BP 110/78
--- NOTE | 2018-03-01 20:00 | NUR ---
MS2/RN ADMITTED PATIENT FROM MS2, PATIENT IS AWAKE, ALERT, ORIENTED, COMFORTABLE, NO C/O PAIN, NO DISTRESS NOTED, ADMISSION DONE PER GPS PROTOCOL, PATIENT IS VOLUNTARY ADMISSION. WILL MONITOR.
[~2018-03-01 20:39] MED LIST changes: +DIVA250T PO; -LEVO100T9 PO; +QUET300T2 PO; +SERT100T PO; +TRAZ-214 PO; -ZOLP10TA6 PO
[2018-03-01] MEDS ORDERED: MAGNESIUM HYDROXIDE 30 ML UDC PO PRN (21:00)
[2018-03-01] MEDS ORDERED: LORAZEPAM 0.5 MG TABLET PO PRN (21:00)
[2018-03-01] MEDS ORDERED: ACETAMINOPHEN 325 MG TABLET PO PRN (21:00)
[2018-03-01] MEDS ORDERED: MAG HYDROX/AL HYDROX/SIMETH 30 ML UDC PO PRN (21:00)
--- NOTE | 2018-03-01 22:02 | NUR ---
MS2/RN PATIENT WANTS TO GET HIS SEROQUEL AT BEDTIME, MADE A CALL TO DR. MILLER X 2, NO CALL BACK YET. RIVERA NESS RN IN GPS WILL CALL DR. MILLER.
--- NOTE | 2018-03-01 22:04 | NUR ---
MS2/RN DR. MILLER CALLED BACK WITH ORDER OF SEROQUEL 300 MG PO X 1 RECEIVED. CARRIED OUT.
[2018-03-01] MEDS: ZOLPIDEM TARTRATE 5 MG TABLET PO PRN (22:22)
[2018-03-01] MEDS ORDERED: QUETIAPINE FUMARATE 100 MG TABLET PO ONE (22:30)
--- NOTE | 2018-03-01 23:28 | NUR ---
MS2/RN PATIENT IS SLEEPING AT THIS TIME, EASILY AROUSABLE, APPEAR COMFORTABLE, NO SIGNS OF DISTRESS NOTED, CALL LIGHT IN REACH. WILL CONTINUE TO MONITOR.
[2018-03-02 06:42] LABS: CHOLESTEROL 177 mg/dL (<200); HDL CHOLESTEROL 49 mg/dL (40-60); LDL 105 mg/dL (0-99); TRIGLYCERIDES 82 mg/dL (30-150)
[2018-03-02 06:47] LABS: CREATININE 0.9 mg/dL (0.6-1.3)
--- NOTE | 2018-03-02 06:52 | NUR ---
MS2/RN PATIENT IS AWAKE, AT THIS TIME, CALM AND COMFORTABLE, NO DISTRESS NOTED, ALL NEEDS ATTENDED AT THIS TIME. WILL CONTINUE TO MONITOR.
--- NOTE | 2018-03-02 07:25 | NUR ---
MS2/RN ENDORSED TO NAN PRADO, RE: REMAINING GPS PAPER WORKS THAT NEED PATIENT'S SIGNATURE, AND TO TAKE PICTURE OF THE PATIENT TO BE PLACED IN CHART PER GPS POLICY.
[2018-03-02] MEDS ORDERED: FLUO10TA PO (07:49)
[2018-03-02 08:00] VITALS: BP 119/65
--- NOTE | 2018-03-02 08:00 | NUR ---
MS2/RN RECEIVED PATIENT AWAKE, ALERT, ORIENTED, COMFORTABLE, NO C/O PAIN, NO DISTRESS NOTED,WITH BRP.PATIENT IS VOLUNTARY ADMISSION. WILL MONITOR.
[2018-03-02] MEDS: OXYBUTYNIN CHLORIDE ER 5 MG TAB PO SCH (09:03)
--- NOTE | 2018-03-02 11:30 | NUR ---
Initial Discharge Plan: Pt currently resudes at a Board and Care located at [address] [place] [address]; ([phone]). Per pt, he would like to return to this Board and Care even though he has already been approved to go to [facility] (SNF). Pt stated that he will allow his cousin and payee, Néstor Reeves ([phone]), to make this decision. SW will work with the pt, the payee, and the MD regarding appropriate discharge planning. SW will form a safe and proper discharge.
--- NOTE | 2018-03-02 11:31 | NUR ---
SW contacted [facility] ([phone]) regarding the pt and to confirm that he is accepted to the facility.
--- NOTE | 2018-03-02 11:31 | NUR ---
GABRIELA contacted pt's cousin and payee, Néstor Díazg ([phone]), and left a message on his voicemail stating that the pt's discharge plan needs to be discussed.
[2018-03-02] MEDS: SERTRALINE HCL 50 MG TABLET PO SCH (12:20)
--- NOTE | 2018-03-02 12:24 | NUR ---
SW called the pt's cousin and payee, Néstor Reeves ([phone]), and discussed that [facility] would be the best option for the pt.
[2018-03-02] MEDS: DIVALPROEX SODIUM 250 MG TABLET.DR PO SCH ×2 (14:36→18:03)
[2018-03-02 16:00] VITALS: BP 125/74
--- NOTE | 2018-03-02 19:30 | NUR ---
RN NOTES RECEIVED PATIENT IN BED AWAKE, AO X 3, ABLE TO MAKE NEEDS KNOWN. NO ACUTE DISTRESS NOTED. DENIES ANY PAIN AT THIS TIME. DENIES SI/HI. SAFETY REMINDERS GIVEN. ON LOW BED WITH BILATERAL UPPER SIDE RAILS UP. CALL COLLADO WITHIN EASY REACH. SITTER AT BEDSIDE. WILL CONTINUE TO MONITOR.
[2018-03-02 20:00] VITALS: BP 130/74
[2018-03-02] MEDS: QUETIAPINE FUMARATE 100 MG TABLET PO SCH (21:25)
[2018-03-02] MEDS: ZOLPIDEM TARTRATE 5 MG TABLET PO PRN (22:08)
[2018-03-03 04:00] VITALS: BP 130/79
--- NOTE | 2018-03-03 06:46 | NUR ---
RN NOTES PATIENT ASLEEP, EASILY AROUSABLE. RESPIRATIONS EVEN. NO SIGNS OF PAIN NOTED. DUE MED GIVEN WITH NO ASE NOTED. NEEDS ATTENDED. SAFETY PRECAUTIONS AND COMFORT MEASURES IN PLACE. WILL GIVE REPORT TO DAY SHIFT FOR CONTINUITY OF CARE. SITTER AT BEDSIDE.
--- NOTE | 2018-03-03 07:15 | NUR ---
RN OPENING NOTES RECEIVED PATIENT AWAKE IN BED IN NO ACUTE SIGNS OF DISTRESS. SITTER AT BEDSIDE. A/O X 4, ABLE TO MAKE NEEDS KNOWN. DENIES ANY PAIN. DENIES SI/HI AT THIS TIME. BEHAVIOR IS CALM AND APPROPRIATE. SAFETY REMINDERS IN PLACE. ON LOW BED WITH BILATERAL UPPER SIDE RAILS UP. CALL COLLADO WITHIN EASY REACH. WILL CONTINUE TO MONITOR.
[2018-03-03 08:00] VITALS: BP 110/61
[2018-03-03] MEDS: DIVALPROEX SODIUM 250 MG TABLET.DR PO SCH ×3 (08:46→16:50)
[2018-03-03] MEDS: OXYBUTYNIN CHLORIDE ER 5 MG TAB PO SCH (08:46)
[2018-03-03] MEDS: SERTRALINE HCL 50 MG TABLET PO SCH (08:46)
--- NOTE | 2018-03-03 11:30 | NUR ---
GABRIELA called the pt's cousin and payee, Néstor Reeves ([phone]), and informed him that the pt will be discharging to [facility] ([facility]) on Tuesday.
[2018-03-03 16:00] VITALS: BP 130/79
--- NOTE | 2018-03-03 18:12 | NUR ---
RN CLOSING NOTES PATIENT AWAKE AND RESTING IN BED WITH SITTER AT BEDSIDE. A/O X 4, ABLE TO MAKE NEEDS KNOWN. DENIES ANY PAIN, DENIES SI/HI ALL THROUGHOUT THE DAY. BEHAVIOR IS CALMED AND APPROPRIATE. ALL SAFETY MEASURES KEPT IN PLACE. KEPT ON LOW BED WITH BILATERAL UPPER SIDE RAILS UP. CALL COLLADO WITHIN EASY REACH. ALL NEEDS AND CARE ATTENDED WELL. WILL ENDORSE TO TRAILER STEERER NURSE FOR GAMALIEL.
--- NOTE | 2018-03-03 19:45 | NUR ---
RN OPENING NOTES RECEIVED REPORT FROM DAYSHIFT NAN BURGESS. FOUND Pt AWAKE, RESTING IN BED. NO S/S OF ACUTE DISTRESS OR SOB NOTED. Pt IS A/OX4, VERBAL, ABLE TO MAKE NEEDS KNOWN. GPS OVERFLOW. ON VOLUNTARY ADMISSION. NO IV ACCESS. SITTER AT BEDSIDE. SAFETY MEASURES IN PLACE. BED LOW, LOCKED, HOB ELEVATED, SIDE RAILS UP, CALL LIGHT AND BEDSIDE TABLE WITHIN REACH. BED ALARM ON. WILL CONTINUE TO MONITOR Pt THROUGHOUT THE NIGHT FOR SAFETY.
[2018-03-03 20:00] VITALS: BP 124/64
[2018-03-03] MEDS: QUETIAPINE FUMARATE 100 MG TABLET PO SCH (21:08)
[2018-03-03] MEDS: ZOLPIDEM TARTRATE 5 MG TABLET PO PRN (21:10)
--- NOTE | 2018-03-04 06:51 | NUR ---
RN CLOSING NOTES NO SIGNIFICANT CHANGES IN Pt's CONDITION. Pt REMAINS STABLE AT THIS TIME. NO S/S OF ACUTE DISTRESS OR SOB NOTED DURING THE NIGHT. ALL NEEDS MET AND ATTENDED TO. ALL ORDERED MEDS GIVEN. SAFETY MEASURES IN PLACE. SITTER AT BEDSIDE. WILL ENDORSE TO DAYSHIFT RN FOR Pt's GAMALIEL.
--- NOTE | 2018-03-04 07:27 | NUR ---
RN OPENING NOTES PATIENT RECEIVED AWAKE IN BED WITH SITTER AT BEDSIDE. NO ACUTE SIGNS OF DISTRESS NOTED. A/O X 4. VERBALLY RESPONSIVE, DENIES ANY PAIN OR DISCOMFORTS AT THIS TIME. DENIES SI/HI. BEHAVIOR IS CALM AND APPROPRIATE. ON ROOM AIR, BREATHING EVEN AND UNLABORED. SAFETY MEASURES IN PLACE. ON LOW BED WITH B/L UPPER SIDE RAILS UP. CALL [place] WITHIN EASY REACH. WILL CONTINUE TO MONITOR.
[2018-03-04 08:00] VITALS: BP 109/61
[2018-03-04] MEDS: OXYBUTYNIN CHLORIDE ER 5 MG TAB PO SCH (08:07)
[2018-03-04] MEDS: SERTRALINE HCL 50 MG TABLET PO SCH (08:07)
[2018-03-04] MEDS: DIVALPROEX SODIUM 250 MG TABLET.DR PO SCH ×3 (08:08→16:30)
[2018-03-04 16:00] VITALS: BP 122/75
--- NOTE | 2018-03-04 19:30 | NUR ---
MS RN OPENING NOTES: RECEIVED PT IN BED AND IS A/XO4X. PT HAS SITTER AT BEDSIDE. PT HAS NO IV. NO SOB NOTED. NO S/S OF DISTRESS. CALL LIGHT WITHIN PT'S REACH. BED KEPT IN LOW, LOCKED POSITION, AND SIDE RAILS X 2UP. WILL CONTINUE TO MONITOR PT.
--- NOTE | 2018-03-04 19:40 | NUR ---
RN CLOSING NOTES PATIENT IN BED AWAKE, A/O X 4, ABLE TO MAKE NEEDS KNOWN. DENIES ANY PAIN, DENIES SI/HI ALL THROUGHOUT THE DAY. BEHAVIOR APPROPRIATE. SITTER AT BEDSIDE. ALL SAFETY MEASURES KEPT IN PLACE. KEPT ON LOW BED WITH BILATERAL UPPER SIDE RAILS UP. CALL COLLADO WITHIN EASY REACH. ALL NEEDS AND CARE ATTENDED WELL. ENDORSED TO COMMERCIAL CONSTRUCTION PROJECT MANAGER NURSE FOR GAMALIEL.
[2018-03-04 20:00] VITALS: BP 112/72
[2018-03-04] MEDS: ZOLPIDEM TARTRATE 5 MG TABLET PO PRN (21:38)
[2018-03-04] MEDS: QUETIAPINE FUMARATE 100 MG TABLET PO SCH (21:38)
--- NOTE | 2018-03-04 21:40 | NUR ---
MS RN NOTES: PT REQUESTED FOR SLEEPING AID. PT WAS ADMINISTERED AMBIEN 5MG PO. WILL CONTINUE TO MONITOR. SITTER AT BEDSIDE WELL.
--- NOTE | 2018-03-05 06:45 | NUR ---
MS RN CLOSING NOTES: ALL NEEDS WERE ATTENDED AND ANTICIPATED FOR. PT RESTING IN BED AT THIS TIME. NO SOB NOTED. NO S/S OF DISTRESS. SITTER AT BEDSIDE. PT HAS NO IV. CALL LIGHT WITHIN PT'S REACH. BED KEPT IN LOW, LOCKED POSITION, AND SIDE RAILS X 2UP. WILL ENDORSE TO AM NURSE FOR GAMALIEL.
--- NOTE | 2018-03-05 07:45 | NUR ---
RN NOTES PATIENT A/OX4, BREATHING EVEN AND UNLABORED, NO DISTRESS NOTED, PATIENT DENIES SI/HI, SITTER AT BEDSIDE, SAFETY MEASURES IN PLACED, WILL CONTINUE TO MONITOR.
[2018-03-05 08:00] VITALS: BP 106/56
[2018-03-05] MEDS: DIVALPROEX SODIUM 250 MG TABLET.DR PO SCH ×3 (08:34→16:52)
[2018-03-05] MEDS: SERTRALINE HCL 50 MG TABLET PO SCH (08:34)
[2018-03-05] MEDS: OXYBUTYNIN CHLORIDE ER 5 MG TAB PO SCH (08:34)
[2018-03-05 16:00] VITALS: BP 111/66
--- NOTE | 2018-03-05 18:10 | NUR ---
RN NOTES PATIENT DENIES SI/HI, NO SIGNIFICANT CHANGE, SITTER AT BEDSIDE, DENIES PAIN OR DISCOMFORT, ADL CARE RENDERED. SAFETY MEASURES IN PLACED, WILL ENDORSE TO LUMBER INSPECTOR FOR GAMALIEL.
--- NOTE | 2018-03-05 19:25 | NUR ---
MS/RN OPENING NOTES PT RECEIVED A/OX4. ON ROOM AIR, BREATHING EVEN AND UNLABORED. DENIES SOB OR PAIN AT THIS TIME. SITTER AT BEDSIDE. NO IV ACCESS PER PROTOCOL. DENIES SI/HI. NO PLAN. NERVOUS ABOUT POSSIBLE DISCHARGE TOMORROW TO REHAB FACILITY. ENCOURAGED PT TO EXPRESS CONCERNS/FEELINGS. BED IN LOW/LOCKED POSITION WITH CALL LIGHT IN REACH. SIDE RAILS UPX3. WILL CONTINUE TO MONITOR
[2018-03-05 20:00] VITALS: BP 113/54
[2018-03-05] MEDS: QUETIAPINE FUMARATE 100 MG TABLET PO SCH (21:12)
[2018-03-05] MEDS: ZOLPIDEM TARTRATE 5 MG TABLET PO PRN (21:12)
--- NOTE | 2018-03-06 07:08 | NUR ---
MS/RN CLOSING NOTES PT ASLEEP, EASILY AROUSABLE TO NAME. SITTER AT BEDSIDE. REMAINS ON ROOM AIR, BREATHING EVEN AND UNLABORED. DENIES SOB OR PAIN. NO IV ACCESS PER PROTOCOL. SLEEP APPROX 8 HOURS DURING SHIFT. DENIES SI/HI, HALLUCINATIONS. NO SIGNIFICANT CHANGES OVERNIGHT. ENCOURAGED PT TO EXPRESS CONCERNS/FEELINGS REGARDING DC PLANNING. REMAINED CALM AND COOPERATIVE DURING SHIFT. ALL NEEDS MET. BED REMAINS IN LOW/LOCKED POSITION WITH CALL LIGHT IN REACH. SIDE RAILS UPX2. WILL ENDORSE TO DAY SHIFT RN GAMALIEL.
[2018-03-06] MEDS: DIVALPROEX SODIUM 250 MG TABLET.DR PO SCH ×2 (08:36→12:17)
[2018-03-06] MEDS: SERTRALINE HCL 50 MG TABLET PO SCH (08:36)
[2018-03-06] MEDS: OXYBUTYNIN CHLORIDE ER 5 MG TAB PO SCH (08:37)
--- NOTE | 2018-03-06 11:26 | NUR ---
GABRIELA contacted the pt's cousin and payee at his work phone like he had requested ([phone]) to inform him that the discharge is occurring today at 1pm.
--- NOTE | 2018-03-06 13:17 | NUR ---
Discharge Note: Pt was discharged to [facility] ([facility]) located [place] [address] [place] [address]; ([phone]). Pt was transported via [facility] (Trip #) at 1:00PM. Pts cousin/payee, Néstor Reeves ([phone]), was notified of the placement and agreed to it. Upon discharge, the pt appeared to be in a euthymic mood with an excited affect. Pt denied having any hallucinations or suicidal/homicidal ideation as well. Pt will be under the care of his psychiatrist, Dr. Bermudez, located at [address], [place] [address]; and his geodetic surveyor technologist, Dr. Vega, located at [address] [place] [address]; .
--- NOTE | 2018-03-06 14:15 | NUR ---
DISCHARGE NOTES PATIENT DISCHARGE AT THIS TIME GOING SNF. PATIENT A/O X3/4. MED COMPLIANT, MEDICALLY STABLE, V/S STABLE, NO C/O PAIN AT THIS TIME. PATIENT DENIED SI/HI/AVH AT THIS TIME. MED RECONCILIATION AND DISCHARGE ORDER REVIEWED A DN EXPLAINED TO. REPORT GIVEN SNF RN NAME KAILEY. RN VERBALIZED UNDERSTANDING, BELONGING RETURNED BACK TO TO THE PATIENT,. FAMILY AWARE OF DISCHARGE PLANING. PATIENT CRUISE COUNSELOR BY AMBULANCE. PATIENT WILL FOLLOW FACILITY BLOW MOLD TECHNICIAN, AND PSYCHIATRIST.
== END 2018-03-06 14:15 | DRG 885 ==
LOC: GPSOV2 20:39
PROVIDERS: ADMIT Psychiatry & Neurology Psychiatry; ATTEND Psychiatry & Neurology Psychiatry
DX: F31.64 Bipolar disorder, current episode mixed, severe, with psychotic features (principal); F29 Unspecified psychosis not due to a substance or known physiological condition; F41.9 Anxiety disorder, unspecified; E03.9 Hypothyroidism, unspecified; Z79.899 Other long term (current) drug therapy; N40.0 Benign prostatic hyperplasia without lower urinary tract symptoms; D63.8 Anemia in other chronic diseases classified elsewhere; Z81.8 Family history of other mental and behavioral disorders
CPT/HCPCS: 36415; 80061-TC; 80164-TC; 82565-TC

== ENCOUNTER 2019-07-29 19:16 | Emergency (ER) | payer MEDICARE, OTHER ==
[~2019-07-29] VITALS: Ht 170.2 cm; Wt 63.5 kg
[~2019-07-29 19:16] MED LIST changes: -DIVA250T PO; -QUET300T2 PO; -SERT100T PO; -TRAZ-214 PO
--- NOTE | 2019-07-29 19:24 | NUR ---
LINDA FROM [facility] C/O DIFFICULTY URINATING "FOR A FEW WEEKS" +WEAKNESS, +LETHARGIC, +LOSS OF APPETITE, pt awake, alert, -sob, nad noted, vss ,pending md jessica
[2019-07-29 21:00] LABS: BASOPHILS % (AUTO) 0.7 % (0.0-2.0); EOSINOPHILS % (AUTO) 1.3 % (0.0-6.0); HEMATOCRIT 40 % (39-51); HEMOGLOBIN 13.6 g/dL (13.5-17.5); LYMPHOCYTES # (AUTO) 1.8 /CMM (0.8-4.8); LYMPHOCYTES % (AUTO) 31.2 % (20.0-44.0); MEAN CORPUSCULAR HGB CONC 34 g/dl (31.0-36.0); MEAN CORPUSCULAR VOLUME 100 fL (80-96); MONOCYTES # (AUTO) 0.7 /CMM (0.1-1.30); MONOCYTES % (AUTO) 11.4 % (2.0-12.0); NEUTROPHILS # (AUTO) 3.2 /CMM (1.8-8.9); NEUTROPHILS % (AUTO) 55.4 % (43.0-81.0); PLATELET COUNT (AUTO) 181 /CMM (150-450); WHITE BLOOD COUNT (AUTO) 5.7 K/uL (4.3-11.0)
[2019-07-29 21:28] LABS: CALCIUM, SERUM 8.7 mg/dL (8.5-10.1); CREATININE 0.9 mg/dL (0.6-1.3); POTASSIUM 4.3 mmol/L (3.5-5.1)
[2019-07-29] MEDS ORDERED: LIDOCAINE 2% JEL UROJET 10 ML MM ONE (21:29)
[2019-07-29 21:33] LABS: ALBUMIN 3.5 g/dL (3.4-5.0); BILIRUBIN,DIRECT 0.2 mg/dL (0.0-0.2); TOTAL PROTEIN, SERUM 6.5 g/dL (6.4-8.2)
[2019-07-29 22:11] LABS: APPEARANCE,URINE Slightly Cloudy (CLEAR); BILIRUBIN,URINE Negative (NEGATIVE); BLOOD, URINE Moderate Ery/uL (NEGATIVE); COLOR,URINE Pink (YELLOW); KETONES,URINE 15 (NEGATIVE); LEUKOCYTE ESTERASE ,URINE Negative (NEGATIVE); NITRITE, URINE Negative (NEGATIVE); PROTEIN,URINE Negative (NEGATIVE); UGLUCOSE Negative (NEGATIVE); UROBILINOGEN,URINE 0.2 EU/dL (0.2)
[2019-07-29 22:51] LABS: BACTERIA,URINE Few /HPF (None Seen); RBC,URINE TOO NUMEROUS TO COUN /HPF (0-2); SPERM,URINE Few /HPF (None Seen); SQUAMOUS EPITHELIAL CELL,UR Rare /HPF (None Seen)
[2019-07-29 23:00] VITALS: BP 130/74
--- NOTE | 2019-07-29 23:18 | NUR ---
Patient discharged to home in stable condition. Written and verbal after care instructions given. Patient verbalizes understanding of instruction. IV removed. Catheter intact and site benign. Pressure and 4x4 applied to site. No bleeding noted.
== END 2019-07-29 23:20 | disposition home or self-care (01) ==
LOC: ER 19:19
DX: R33.9 Retention of urine, unspecified (principal); F32.9 Major depressive disorder, single episode, unspecified; F41.9 Anxiety disorder, unspecified; E03.9 Hypothyroidism, unspecified; N40.0 Benign prostatic hyperplasia without lower urinary tract symptoms; D64.9 Anemia, unspecified; Z79.899 Other long term (current) drug therapy
CPT/HCPCS: 36415; 51702; 80048; 80076; 81001; 83690; 85025; 87086; 99284; J3490; 81000-TC